=== PATIENT | male | born 1950 | race Caucasian/White ===

== ENCOUNTER → 2023-08-31 13:46 | Outpatient (REF) | payer OTHER, SELFPAY | LOC: HWRCS 13:46 | PROVIDERS: ATTENDING PHYSICIAN Internal Medicine Cardiovascular Disease; FAMILY PHYSICIAN Nurse Practitioner | DX: I34.0 Nonrheumatic mitral (valve) insufficiency (principal) | CPT/HCPCS: 93306 ==

== ENCOUNTER 2024-02-10 15:42 | Emergency (ER) | payer OTHER, SELFPAY ==
[2024-02-10 15:44] VITALS: BP 141/89
[2024-02-10 16:00] VITALS: BP 136/78
--- NOTE | 2024-02-10 16:57 | ED.GENMED ---
History of Present Illness
<DO Spencer Spencer Last Filed: 02/10/24 16:58>
General
Chief Complaint: DVT/Possible Blood Clot
Time Seen by Provider: 02/10/24 15:58
<Junaid Smith Jr., PA-C - Last Filed: 02/10/24 20:46>
General
Source: patient
Exam Limitations: none
Nursing documentation reviewed up to this point in time: agreed with
History of Present Illness
History of Present Illness:
73-year-old male presenting to the emergency department today with concerns of swelling discomfort to the right leg over the past 3 days. He felt a sharp pain to his groin 3 days ago and is noticing increasing swelling to the right leg since.
Claims it is somewhat diffuse swelling but seems to be maximal to the knee. Has been able to ambulate. Did not does have a history of a blood clot last year was on Eliquis for 1 month. He is unsure of any precipitating event
Past History
<DO Spencer Spencer Last Filed: 02/10/24 16:58>
Past History
ED Past Medical History: Valvular disease
ED Past Surgical History: Orthopedic and Other (Hernia repair)
Social History
Tobacco: Non-smoker
Alcohol: None
Drug: None
Personal:
Living: with family
Review of Systems
<Junaid Smith Jr., PA-C - Last Filed: 02/10/24 20:46>
Review of Systems
Allergies reviewed?: Yes
All Other Systems: ROS reviewed and negative except as documented in HPI and ROS
Phy Exam
<Junaid Smith Jr., PA-C - Last Filed: 02/10/24 20:46>
Physical Exam
Physical Exam:
GENERAL: Alert , in no apparent distress
EYE: pupils equal and reactive
NECK: Supple, no significant adenopathy.
ENT: o/p clr, mmm.
CARDIAC: Regular rate and rhythm .
LUNGS: Clear breath sounds bilaterally, no acute respiratory distress, no wheezes/rales/rhonchi
ABDOMEN: Soft, without focal tenderness, no r/g, no cvat
NEUROLOGICAL: Alert and oriented, no focal neuro deficits
SKIN: Warm and dry, skin intact.
MUSCULOSKELETAL: Vague diffuse swelling with mild redness throughout the right leg +1 nonpitting good distal pulses good range of motion strength well perfused.
PSYCH: Normal and appropriate interaction.
Course
<Opal Nogueira, DO - Last Filed: 02/10/24 16:58>
Orders/Labs/Results
Orders:
Orders
02/10/24 15:58
Venous Doppler Lwr Ext Rt [US Periph Venous LOWER Ext RT] Urgent
Comment:
Reason For Exam: right leg pain
02/10/24 18:28
CBC/With Diff [Complete Blood Count/With Diff] Urgent
CMP [Comprehensive Metabolic Panel] Urgent
02/10/24 19:36
Apixaban [Eliquis] 10 mg PO ONCE ONE
Abnormal Lab Results
02/10/24
18:28
RBC 3.53 L 10^6/uL
(4.70-6.10)
Hgb 11.0 L g/dL
(13.0-18.0)
Hct 31.5 L %
(39.0-52.0)
MCH 31.2 H pg
(27.0-31.0)
Abs Immat Gran (auto) 0.1 H 10^3/uL
(0-0.05)
Absolute Neuts (auto) 6.6 H 10^3/uL
(1.4-6.5)
Absolute Monos (auto) 0.8 H 10^3/uL
(0.1-0.6)
Carbon Dioxide 21 L mmol/L
(22-30)
Creatinine 1.6 H mg/dL
(0.7-1.3)
02/10/24 18:28
02/10/24 18:28
Vital Signs
Initial and Last Documented VS:
Initial Vital Signs
Temp Pulse Resp BP Pulse Ox
98.6 F 89 18 141/89 97
02/10/24 15:44 02/10/24 15:44 02/10/24 15:44 02/10/24 15:44 02/10/24 15:44
Last Documented Vital Signs
Temp Pulse Resp BP Pulse Ox
98.6 F 78 20 136/78 99
02/10/24 15:44 02/10/24 16:00 02/10/24 20:00 02/10/24 16:00 02/10/24 16:00
<Junaid Smith Jr., PA-C - Last Filed: 02/10/24 20:46>
Orders/Labs/Results
Orders:
Orders
02/10/24 15:58
Venous Doppler Lwr Ext Rt [US Periph Venous LOWER Ext RT] Urgent
Comment:
Reason For Exam: right leg pain
02/10/24 18:28
CBC/With Diff [Complete Blood Count/With Diff] Urgent
CMP [Comprehensive Metabolic Panel] Urgent
02/10/24 19:36
Apixaban [Eliquis] 10 mg PO ONCE ONE
Abnormal Lab Results
02/10/24
18:28
RBC 3.53 L 10^6/uL
(4.70-6.10)
Hgb 11.0 L g/dL
(13.0-18.0)
Hct 31.5 L %
(39.0-52.0)
MCH 31.2 H pg
(27.0-31.0)
Abs Immat Gran (auto) 0.1 H 10^3/uL
(0-0.05)
Absolute Neuts (auto) 6.6 H 10^3/uL
(1.4-6.5)
Absolute Monos (auto) 0.8 H 10^3/uL
(0.1-0.6)
Carbon Dioxide 21 L mmol/L
(22-30)
Creatinine 1.6 H mg/dL
(0.7-1.3)
02/10/24 18:28
02/10/24 18:28
Vital Signs
Initial and Last Documented VS:
Initial Vital Signs
Temp Pulse Resp BP Pulse Ox
98.6 F 89 18 141/89 97
02/10/24 15:44 02/10/24 15:44 02/10/24 15:44 02/10/24 15:44 02/10/24 15:44
Last Documented Vital Signs
Temp Pulse Resp BP Pulse Ox
98.6 F 78 20 136/78 99
02/10/24 15:44 02/10/24 16:00 02/10/24 20:00 02/10/24 16:00 02/10/24 16:00
<Junaid Smith Jr., PA-C - Last Filed: 02/10/24 20:46>
MDM/Problems Addressed
MDM/Problems Addressed:
73-year-old male presenting to the emergency department today with concerns of right-sided leg swelling over the past 3 days. Did have an initial groin discomfort for a brief moment a few days ago preceding the swelling to the right leg. Had
similar symptoms when he had DVT and required Eliquis. Ultrasound showing DVT. No symptoms to the abdomen no chest pain or shortness of breath no signs or symptoms consistent with PE. Patient started on Eliquis and otherwise will follow-up
closely with hematology. Patient did have a slightly elevated creatinine level 1.6 from his baseline he was advised to stay hydrated and to follow-up for repeated labs as an outpatient. Return precautions given.
<Junaid Smith Jr., PA-C - Last Filed: 02/10/24 20:46>
*Critical Care Note
Total Time (30-74mins, 75-104mins- exclusive of procedures): Not Applicable
ED Attending Note
<Opal Nogueira DO - Last Filed: 02/10/24 16:58>
-
Portions of this chart may have been created with voice recognition software.� Occasional wrong word or��sound alike� substitutions may have occurred due to the inherent limitations of voice recognition software.
Discharge Plan
Departure
Patient Disposition: Home (Routine Discharge)
Date of Disposition: 02/10/24
Time of Disposition: 20:44
Patient with high blood pressure during this ER visit?: No
Condition: Good
Covid-19: Not Applicable
Discharge Problem:
DVT (deep venous thrombosis), Elevated serum creatinine
Instructions: Deep Vein Thrombosis (Blood Clots in the Legs) (DC)
Prescriptions:
New
Eliquis DVT-PE Treat 30D Start 5 mg (74 tabs) tablets,dose pack
See Rx Instructions .ROUTE .COMPLEX Qty: 74 0RF
Rx Instructions:
orally per package directions
No Action
Eliquis 5 mg tablet
5 mg PO BID Qty: 70 0RF
Rx Instructions:
Take two tabs PO BID x 1 week. Take one tab PO BID x remaining days
Referrals:
Sam Mcmillan, DO [Active] - Follow up in 5-7 days
UNKNOWN - PT DOES,NOT KNOW [Family Provider] -
Activity Restrictions/Additional Instructions:
You came to the emergency department today with concerns of right leg swelling. You are found have a DVT. You were started on an anticoagulant. Please follow closely with hematology return to the emergency department any worsening, new or
concerning symptoms. Additionally you had an elevated creatinine level. Please have this repeated over the next week or 2.
Interventions
Interventions:
*Risk Screen - Suicide Last Done: 02/10/24 15:45
*General Assessment Last Done: 02/10/24 15:45
*Neglect/Abuse Screening Last Done: 02/10/24 15:45
ED- Fall Risk Assessment Last Done: 02/10/24 15:50
*ED COVID-19 Vaccine History Last Done: 02/10/24 15:45
ED- Pulmonary Assessment Last Done: 02/10/24 15:50
ED-Peripheral Vascular Assessment Last Done: 02/10/24 15:50
ED-Skin Assessment Last Done: 02/10/24 15:50
Discharge Date and Time
Print Language: ALGERIAN
--- NOTE | 2024-02-10 18:22 | CM ---
Patient provided with Subha holland.
[2024-02-10 18:35] LABS: % Basophils 0.8 % (0-2); % Eosinophils 2.8 % (0-6); % Immature Granulocytes 0.5 % (0-0.5); % Lymphocytes 25.5 % (20.5-51.1); % Monocytes 7.6 % (1.7-9.3); % Neutrophils 62.8 % (42.2-75.2); Absolute Basophils 0.1 10^3/uL (0-0.2); Absolute Eosinophils 0.3 10^3/uL (0-0.7); Absolute Immature Granulocytes 0.1 10^3/uL (0-0.05); Absolute Lymphocytes 2.7 10^3/uL (1.2-3.4); Absolute Monocytes 0.8 10^3/uL (0.1-0.6); Absolute Neutrophils 6.6 10^3/uL (1.4-6.5); Hematocrit 31.5 % (39.0-52.0); Mean Corp Hgb Conc. 34.9 g/dL (33.0-37.0); Mean Corpuscular Hgb 31.2 pg (27.0-31.0); Mean Corpuscular Volume 89.2 fL (80.0-94.0); Mean Platelet Volume 9.1 fL (7.4-10.4); Nucleated Red Blood Cells % 0 % (-); Platelet Count 299 10^3/uL (130-400); Red Blood Cell Count 3.53 10^6/uL (4.70-6.10); White Blood Cell Count 10.5 10^3/uL (4.8-10.8)
[2024-02-10 19:07] LABS: ALT (SGPT) 19 U/L (0-50); AST (SGOT) 25 U/L (17-59); Alkaline Phosphatase 97 U/L (38-126); Blood Urea Nitrogen 19 mg/dl (9-20); Calcium 9.1 mg/dl (8.4-10.2); Carbon Dioxide 21 mmol/L (22-30); Chloride 107 mmol/L (98-107); Glucose 85 mg/dl (70-99); Potassium 4.5 mmol/L (3.5-5.1); Sodium 139 mmol/L (135-145); Total Bilirubin 0.5 mg/dl (0.2-1.3); Total Protein 6.7 g/dl (6.3-8.2); eGFR 45.21
[2024-02-10] MEDS: ELIQUIS 10 MG PO (19:48)
== END 2024-02-10 20:51 | disposition home or self-care (01) ==
LOC: EMR 15:42
PROVIDERS: Physician Assistant; EMERGENCY PHYSICIAN Student in an Organized Health Care Education/Training Program
DX: I82.411 Acute embolism and thrombosis of right femoral vein (principal); Z86.718 Personal history of other venous thrombosis and embolism
CPT/HCPCS: 99284; 80053; 85025; 93971

== ENCOUNTER → 2024-12-11 12:45 | Outpatient (REF) | payer OTHER, SELFPAY | LOC: HWRCS 12:45 | PROVIDERS: ATTENDING PHYSICIAN Physician Assistant Medical; FAMILY PHYSICIAN Nurse Practitioner Family | DX: I34.0 Nonrheumatic mitral (valve) insufficiency (principal) | CPT/HCPCS: 93306 ==